=== PATIENT | female | born 1995 | race Two or more races ===

== ENCOUNTER 2017-07-11 23:03 | Emergency (ER) | payer SELFPAY ==
[~2017-07-11] VITALS: Ht 157.5 cm; Wt 72.6 kg
--- NOTE | 2017-07-11 23:22 | NUR ---
ER MD AT BEDSIDE FOR PATIENT EVALUATION
[2017-07-11] MEDS ORDERED: CEPHALEXIN MONOHYDRATE 500 MG CAPSULE PO ONE (23:30)
[2017-07-11] MEDS ORDERED: CEPHALEXIN MONOHYDRATE 500 MG CAPSULE ONE (23:34)
--- NOTE | 2017-07-11 23:36 | NUR ---
ER MD ADMINISTERED LIDOCAINE 2% TO PATIENT DURING TREATMENT OF L HAND 5TH FINGER TIP AVULSION
[2017-07-11 23:37] VITALS: BP 128/78
--- NOTE | 2017-07-11 23:38 | NUR ---
Patient discharged to home in stable conditon. Written and verbal after care instructions given. Patient verbalizes understanding of instructions. Ambulated from ER with stable gait. no acute distress noted. VSS. All belongings with patient.
== END 2017-07-11 23:39 | disposition home or self-care (01) ==
LOC: ER 23:08
DX: S61.217A Laceration without foreign body of left little finger without damage to nail, initial encounter (principal); Z91.010 Allergy to peanuts; W26.8XXA Contact with other sharp object(s), not elsewhere classified, initial encounter; Y93.89 Activity, other specified; Y92.89 Other specified places as the place of occurrence of the external cause; Y99.8 Other external cause status
CPT/HCPCS: 99284; A4663